=== PATIENT | female | born 1955 | race Caucasian/White ===

== ENCOUNTER → 2017-01-28 | Outpatient (CLI) | payer MEDICARE, OTHER ==
[~2017-01-28] MED LIST: ACTOS15 MG PO; ADVAIR; ADVAIR 250-501 EACH IH; ADVAIR 2501 DISK W/1 IH; ADVAIR 2501 DISK W/D; ADVAIR 2501 DISK W/D INH; ADVAIR 2501 DISK W/D PO; ADVAIR 5001 DISK W/D PO; ALBUTEROL 0.5ML INH; ALBUTEROL17 G1 INH; ALBUTEROL17 GM INH; ALBUTEROL17 GM NEB; ALPRAZOLAM PO; AMARYL2 MG PO; AMITRIPTYLINE H25 MG PO; AMOXICILLIN875 MG PO; ANTI-DIARRHEAL2 M1 PO; ASPIRIN; ASPIRIN ENTERI325 M1 PO; ATROVENT HFA12.9 GM INH; ATROVENT INH; ATROVENT NEB; BACLOFEN10 MG PO; BACTRIM DS TABL1 TA1 PO; BENTYL10 MG PO; CELEBREX PO; CELEXA; CELEXA PO; CLONIDINE HCL0.1 MG; CLONIDINE HCL0.1 MG PO; CLONIDINE PO; COMBIVENT INH14.7 GM; COMBIVENT INH14.7 GM INH; CORTISPORIN-TC10 ML OT; COZAAR25 MG PO; CYMBALTA20 MG PO; DIFLUCAN100 MG PO; DITROPAN PO; DITROPAN5 MG PO; DOXYCYCLINE PO; DUONEB 2.5-0.5 M3 ML NEB; EFFEXOR100 MG PO; FENOFIBRATE160 MG PO; FISH OIL300 MG; FLAGYL PO; FLEXERIL PO; FLEXERIL10 MG PO; GARLIC OIL1 CAP; GLUCOTROL; GLUCOTROL5 MG/BOTTL PO; HCTZ PO; HYDROCHLOROTHIA25 MG PO; HYOSEYAMINE PO; IBUPROFEN PO; IMODIUM2 MG PO; JANUMET XR 50-1 EAC1 PO; KEFLEX500 MG PO; LEVAQUIN PO; LIPITOR; LIPITOR80 MG PO; LISINOPRIL; LISINOPRIL20 MG PO; LOPID600 MG; LOPID600 MG PO; LOPRESSOR PO; LORTAB 7.5-5001 TAB PO; LOTRONEX1 MG PO; LOVASTATIN10 MG PO; LYRICA50 MG PO; METFORMIN HCL500 M1; METFORMIN PO; METHOCARBAMOL500 MG PO; METOPROLOL TAR100 MG PO; MOBIC PO; MULTIVITAMIN1 UDCAP PO; NEURONTIN; NEURONTIN600 MG PO; NEURONTIN800 MG PO; NEXIUM; NEXIUM PO; NEXIUM20 MG PO; NIACIN PO; NIACIN100 MG; ORUDIS75 M1 PO; OXCARBAZEPINE150 M1 PO; OXTELLAR XR150 MG PO; PANTOPRAZOLE SO40 MG PO; PAXIL PO; PENICILLIN PO; PERCOCET 7.5-31 EACH PO; PREDNISONE PO; PREMARIN; PRILOSEC40 MG PO; PULMICORT200 MCG/AE; REMERON15 MG PO; RISPERIDONE PO; ROBITUSSIN A-C S5 ML PO; SEROQUEL300 MG PO; SPIRIVA18 MCG; THEOPHYLLIN PO; TOPROL XL; TOVIAZ4 MG PO; TRAZODONE HCL100 MG PO; VESICARE; VESICARE PO; VICODIN 5/500 T1 TAB PO; VITAMIN B12; VITAMIN D400 UNI1 PO; VITAMIN E15 U/0.3 M; VOLTAREN75 MG PO; ZANTAC PO; ZANTAC150 M1 PO; ZANTAC150 MG PO; ZETIA PO; ZOLOFT PO; [UNRECOGNIZED DRUG - OTHER] PO
--- NOTE | ~2017-01-28 | CT138 ---
[facility] A Service of [facility] RADIOLOGY TEXT RESULTS PATIENT: MADLEINE CALLAHAN LOCATION: [facility] : 57 UNIT #: [id number] AGE: [address]: Eula Swenson MD SEX: F ORDER DR: [id number] [facility] [address] [place], [place] [address] [id number] O MR#: [id number] Acc #: [id number] NAME: MADELINE CALLAHAN : 1955 SEX: F STUDY DATE/TIME: 01/28/2017 10:25 UNIT: [facility] ROOM: STUDY DESCRIPTION: CT Lung screening initial Attending Physician: Eula Swenson M.D. Referring Physician: Eula Swenson M.D. Ordering Physician: Eula Swenson M.D. Primary Care Physician: Eula Swenson M.D. MEDICAL IMAGING REPORT This report is preliminary unless electronic signature is present EXAM CT lung screening study HISTORY Routine screening. 45-year smoking history. TECHNIQUE Low-dose technique was used to generate axial 2 mm images through the chest. Sagittal and coronal reconstructions were generated. CTDI volume 2.60 mGy. DLP 91.57 mGy/cm. This CT exam was performed with one or more of the following radiation dose reduction techniques: automatic exposure control, adjustment of mA and/or kV according to patient size, and iterative reconstruction. COMPARISON STUDIES None. FINDINGS There are minimal emphysematous changes in the upper lobes posteriorly. In the left upper lobe anteriorly, there is an area of somewhat spiculated density that is at least 10-11 mm in diameter. That is seen on image 45. 3 mm nodule anteriorly in the right middle lobe and there is a calcified granuloma in the left upper lobe. The rest of the lungs are clear. Visualized portions of the upper abdomen are unremarkable, except for partially visualized right renal cyst. Bones are unremarkable. IMPRESSION 1. Spiculated density anterior left upper lobe. This is about 10-11 mm in diameter. This could be post-inflammatory scarring or infection but malignancy cannot be excluded. [facility] A Service of [facility] RADIOLOGY TEXT RESULTS PATIENT: MADELINE CALLAHAN LOCATION: [facility] : 57 UNIT #: [id number] AGE: [address]: Eula Swenson MD SEX: F ORDER DR: 2. Lung RADS category 4X, recommend additional imaging with PET/CT scan to evaluate for activity. 3. There is a tiny 3 mm nodule anteriorly in the right middle lobe which will need followup in a year. 4. Otherwise, the study is negative. Dictated by... Joshua John M.D. THIS IS AN ELECTRONICALLY VERIFIED REPORT Joshua John M.D. at 01/29/2017 9:21 AM AJ/destinee TD: 01/29/2017 00:04 JOB #: [id number] MEDICAL IMAGING REPORT Page 1 of 1 COPY
== END | disposition home or self-care (01) ==
LOC: CCAT 09:29
DX: F17.210 Nicotine dependence, cigarettes, uncomplicated (principal)
CPT/HCPCS: G0297